=== PATIENT | male | born 1990 | race Two or more races ===

== ENCOUNTER 2016-09-06 04:10 | Emergency (ER) | payer SELFPAY ==
[2016-09-06] MEDS ORDERED: ONDANSETRON HCL INJ/PF 4 MG/2 ML SDV ONE (04:50)
--- NOTE | 2016-09-06 04:59 | ER Document Report ---
ED Substance Abuse / Acc. OD - General Mode of Arrival: Medic Information source: Patient, Emergency Med Personnel - HPI Onset: Other - Refer to HPI notes - General Chief Complaint: ETOH Abuse Stated Complaint: ETOH ABUSE Time Seen by Provider: 09/06/16 04:26 Notes: Patient is a 25-year-old male presenting to the emergency department via EMS after being found on the side of the road and not acting right. Patient has had lots of alcohol to drink tonight. Patient states "I do not feel good," "my heart rate feels high," and "I vomited a lot." Patient states he has been vomiting for about 2 hours now. Patient cannot remember how much alcohol he drinks at night. Patient also complains of nausea. Patient states he drinks weekly but not every day. Patient states he has a history of asthma and has no known drug allergies. Patient is actively vomiting in the room during the initial assessment. (MAK AUGUSTINE) Past Medical History - General Information source: Patient - Social History Smoking Status: Current Every Day Smoker Chew tobacco use (# tins/day): No Smoking Education Provided: No Frequency of alcohol use: None Drug Abuse: None Family History: None Patient has suicidal ideation: No Patient has homicidal ideation: No Pulmonary Medical History: Reports: Hx Asthma Surgical Hx: Negative Review of Systems - Review of Systems Constitutional: No symptoms reported EENT: No symptoms reported Cardiovascular: No symptoms reported Respiratory: No symptoms reported Gastrointestinal: See HPI, Nausea, Vomiting Genitourinary: No symptoms reported Male Genitourinary: No symptoms reported Musculoskeletal: No symptoms reported Skin: No symptoms reported Hematologic/Lymphatic: No symptoms reported Neurological/Psychological: No symptoms reported -: Yes All other systems reviewed and negative Physical Exam - Vital signs Interpretation: Normal - Vital signs Vitals: Temp Pulse Resp BP Pulse Ox 97.6 F 80 20 116/47 L 100 09/06/16 04:24 09/06/16 04:24 09/06/16 04:24 09/06/16 04:09/06/16 04:24 - Notes Notes: GENERAL: Drowsy but arousable, actively vomiting in room. Mild distress. HEAD: Normocephalic, atraumatic. EYES: Pupils equal, round, and reactive to light. Extraocular movements intact. ENT: Oral mucosa moist, tongue midline. NECK: Full range of motion. Supple. Trachea midline. LUNGS: Clear to auscultation bilaterally, no wheezes, rales, or rhonchi. No respiratory distress. HEART: Regular rate and rhythm. No murmurs, gallops, or rubs. ABDOMEN: Soft, non-tender. Non-distended. Bowel sounds present in all 4 quadrants. EXTREMITIES: Moves all 4 extremities spontaneously. No edema. No cyanosis. NEUROLOGICAL: Alert and oriented x3. Normal speech. PSYCH: Normal affect, normal mood. SKIN: Warm, dry, normal turgor. No rashes or lesions noted. (MAK AUGUSTINE) Course - Re-evaluation Re-evalutation: 09/06/16 05:45 Patient currently refusing laboratory studies and blood draw, states that he feels he is intoxicated, has had too much during, states that he is vomiting as he usually will when he said too much to drink. States nothing feels different than the usual bout of alcohol intoxication. I did discuss with the patient that the only way that I can be certain that there is nothing else going on his by drawing his blood however I do think it is reasonable at this point given the fact that he was drinking earlier this evening and he feels like he is simply intoxicated that we could trial him at home with antiemetics particularly since his vomiting has stopped here and his abdomen is benign absolutely nontender to palpation. Patient will be discharged home with Zofran ODT and return if he is not feeling better in the next 12 hours. He will return sooner for worsening symptoms. (BHARAT SERRATO) - Vital Signs Vital signs: Temp Pulse Resp BP Pulse Ox 97.6 F 80 20 116/47 L 100 09/06/16 04:24 09/06/16 04:24 09/06/16 04:24 09/06/16 04:24 09/06/16 04:24 Discharge - Discharge Clinical Impression: Alcohol intoxication Qualifiers: Complication of substance-induced condition: uncomplicated Qualified Code(s): F10.920 - Alcohol use, unspecified with intoxication, uncomplicated Vomiting alone Qualifiers: Vomiting type: unspecified Vomiting Intractability: intractable Qualified Code( s): R11.11 - Vomiting without nausea Condition: Stable Disposition: HOME, SELF-CARE Additional Instructions: Your vomiting appears to be coming from alcohol intoxication however it is possible something else may be going on. If your vomiting does not resolve, if you develop fevers, if you develop abdominal pain or any new or concerning symptoms please return to the emergency department. Forms: Return to Work Scribe Attestation: 09/06/16 06:40 I personally performed the services described in the documentation, reviewed and edited the documentation which was dictated to the scribe in my presence, and it accurately records my words and actions. (BHARAT SERRATO) Scribe Documentation - Scribe Written by Harmeet:: Harmeet Aranda, 09/06/2016 6:06 acting as scribe for :: Harpreet
[2016-09-06] MEDS ORDERED: NORMAL SALINE 1000 ML 1,000 ML IV PRN (05:02)
[2016-09-06] MEDS ORDERED: ONDANSETRON HCL INJ/PF 4 MG/2 ML SDV IV ONE (05:02)
[2016-09-06] MEDS ORDERED: ONDANSETRON ODT 4 MG TAB (6 TAB/DSPK) PO PRN (05:44)
[2016-09-06 08:58] VITALS: BP 110/50
== END 2016-09-06 09:29 | disposition home or self-care (01) ==
LOC: ER 04:10
DX: F10.129 Alcohol abuse with intoxication, unspecified (principal); R11.2 Nausea with vomiting, unspecified; J45.909 Unspecified asthma, uncomplicated; F17.200 Nicotine dependence, unspecified, uncomplicated
CPT/HCPCS: 99284; 96374; J2405; J7030